=== PATIENT | female | born 1965 | race Caucasian/White ===

== ENCOUNTER 2021-12-07 03:55 | Emergency (ER) | payer OTHER, SELFPAY ==
[2021-12-07 04:10] VITALS: BP 126/91; PULSE 86; RESP 20; TEMP 36.4; O2SAT 99; BMI 24.0
[2021-12-07 04:30] VITALS: BP 118/66; PULSE 81; RESP 16; O2SAT 99
--- NOTE | 2021-12-07 04:41 | CRLHL7_ITS ---
For Patients: As a result of the Century Cures Act, medical imaging exams and procedure reports are released immediately into your electronic medical record. You may view this report before your referring provider. If you have questions, please contact your health care provider. HISTORY: Chest pain. COMPARISON: None available FINDINGS: A portable erect AP view of the chest was obtained at 0509 hours. The lungs are clear. No focal or diffuse infiltrates are present. There is no sign of pneumothorax or abnormality of the ribs to correlate with the history of chest pain. The heart is normal in size. The mediastinum is normal in appearance. There is mild scoliosis of the thoracic and lumbar spine convex towards the left. IMPRESSION: No active disease seen in the chest. Dictated by Leroy Crespo MD @ 12/07/2021 5:04:34 AM (Electronically Signed)
--- NOTE | 2021-12-07 04:42 | ED.CHESTPAIN ---
HPI - Chest Pain General Time Seen by Provider: 04:25 Date Seen: 12/07/21 Chief Complaint: Chest Pain Stated Complaint: Feeling heart fullness LT arm tingling Time Seen by Provider: 12/07/21 04:19 Source: patient, RN notes reviewed and old records reviewed Mode of arrival: ambulatory Limitations: no limitations History of Present Illness HPI narrative: Donita is a very pleasant 56-year-old female otherwise healthy who does not take any medications who comes to the emergency room for evaluation of left arm and chest pain. Donita was on her way to work at [employer] in [place] but decided to get her heart checked out as she has been experiencing some concerning symptoms. Patient states that her left arm has been tingling intermittently for the last 3 days. It does not appear to be associated with activity. She has been able to locate a spot on her left upper back that seems to be the trigger point. She describes tingling going into all 5 fingers. She states that when she thinks about this and having looked up on the Internet left arm pain she starts getting chest pain. She does not have any shortness of breath with this she denies nausea or lightheadedness. She notes that if she becomes involved in activity she does not seem to notice any discomfort. Donita has no history of heart problems noted there is a appear to be any early heart disease in her family. She is not a smoker. She does not know her cholesterol. Currently at this time she is feeling better. She does describe substernal chest discomfort that has been coming and going. She denies a history of DVT, recent extended car rides, calf tenderness or recent air travel. She has not had stress test in the past. Related Data Home Medications Medication Instructions Recorded Confirmed No Known Home Medications 12/07/21 12/07/21 Allergies Allergy/AdvReac Type Severity Reaction Status Date / Time No Known Drug Allergies Allergy Verified 12/07/21 04:23 Review of Systems Status of ROS Reports: 10 or more systems reviewed and unremarkable except as noted in History and below Narrative Patient notes weight gain since being in menopause. Patient notes to be working 2 jobs currently, 1 at [employer] and 1 at [employer] Does agree that she has stress in her life and does agree that she may have some anxiety. Const Denies: fever, chills or fatigue Eyes Denies: change in vision ENMT Reports: neck pain; Denies: throat pain or difficulty swallowing Cardio Reports: chest pain; Denies: palpitations, swelling of feet/ankles, lightheadedness or shortness of breath with exertion Resp Denies: shortness of breath, cough or wheezing GI Denies: abdominal pain, nausea, vomiting or difficulty swallowing Denies: painful urination Musculo Reports: neck pain; Denies: back pain Integ/Breast Denies: rash Neuro Reports: numbness in extremities; Denies: headache or dizziness Endo Denies: fatigue Allergy/Immuno Denies: wheezing PFSH PFSH Medical History Adjustment disorder with mixed anxiety and depressed mood Vitamin D deficiency, unspecified Social History Smoking Status: Never smoker Do you use any of these nicotine containing products: None Second hand tobacco smoke exposure: No How often do you have a drink containing alcohol: never How often do you have six or more drinks on one occasion: Never AUDIT-C Alcohol total score: 0 Non-prescribed substance use: denies use service: No Exam Const Vital Signs, click to edit/add: Vital Signs - 24 hr 12/07/21 04:10 12/07/21 05:30 12/07/21 05:00 Temperature 97.6 F Pulse Rate [Right Pulse Oximeter] 86 74 83 Respiratory Rate 20 16 16 Blood Pressure [Left Upper Arm] 126/91 H 108/66 108/74 Pulse Oximetry 99 100 100 Oxygen Delivery Method Room Air Room Air Room Air 12/07/21 04:30 Temperature Pulse Rate [Right Pulse Oximeter] 81 Respiratory Rate 16 Blood Pressure [Left Upper Arm] 118/66 Pulse Oximetry 99 Oxygen Delivery Method Room Air Documenting provider has reviewed patient's vital signs: yes Common normals: no apparent distress, average body habitus, oriented x3 and no limitations General appearance: cooperative, comfortable and well kempt [facility] Common normals: normocephalic and external ears normal Head and scalp: normocephalic Face and sinus: normal facial exam External ear: external ears normal Eye General eye: normal appearance of both eyes Neck & C-Spine Common normals: full ROM, no lymphadenopathy and supple General: tenderness (Point tenderness noted in the left trapezius.) Cervical spine: cervical ROM normal Other: Trigger point identified in left trapezius equal distant between upper thoracic spine and medial scapular edge. This causes numbness into the hand when I press on it. Resp Common normals: normal respiratory effort and clear to auscultation bilaterally Effort & inspection: able to speak in complete sentences Auscultation: clear to auscultation bilaterally Cardio Common normals: regular rate and regular rhythm Rate: regular rate Rhythm: regular rhythm GI Common normals: Normal to inspection, nondistended, normoactive bowel sounds present, soft to palpation and non-tender Palpation: soft Back & Pelvis Common normals: no thoracic nor lumbar tenderness Extremity Common normals: normal to inspection Neuro Common normals: oriented x3 Other: Moving all extremities. Patient has fullness of the lower extremities but she states this is normal body habitus for her. Ankles appear normal. Psych Common normals: thought process normal and speech normal Appearance: well kempt Activity/motor behavior: appropriate eye contact Speech: normal speech Mood and affect: anxious (Mildly) Thought process: normal thought process Thought content: normal thought content Attention/concentration: attention grossly intact Memory/cognition: memory grossly intact Insight: insight good Judgement: judgment good Skin Common normals: no rashes or lesions noted General skin exam: no rashes or lesions noted Course Course Hospital Course: Patient was examined vital signs reviewed as well as past medical history. Life-threatening differential diagnosis includes but is not limited to DE, PE, pneumothorax, pneumonia and aortic dissection other considerations include pericarditis myocarditis GERD anxiety. At this time patient presents with 3 days of intermittent left arm tingling with associated substernal chest discomfort for 2 days. This improves with distraction per patient admission. I do look back in patient had similar presentation in 2020. She has not had a stress test. She does not smoke. Patient will undergo 90 minute cardiac rule out with EKG, troponin, CBC, comprehensive panel, D-dimer. Will have her on the monitoring tech as well as oximetry. Reevaluation(s) Reevaluation #1: Patient is feeling better and has had no recurrent chest pain at this time. Laboratory values are discussed they are reassuring. This includes negative troponins, D-dimer as well as normal electrolyte panel. I did discuss the elevated blood sugar of 125 with patient and recommend follow-up with her primary MD in regards to continued monitoring. Her TSH is within normal limits. Vital Signs Vital signs: Initial Vital Signs Temperature 97.6 F 12/07/21 04:10 Temperature Source Temporal Artery Scan 12/07/21 04:10 Pulse Rate 86 12/07/21 04:10 Respiratory Rate 20 12/07/21 04:10 Blood Pressure 126/91 H 12/07/21 04:10 Blood Pressure Mean 102 12/07/21 04:10 Blood Pressure Position Semi-Fowlers 12/07/21 04:10 Pulse Oximetry 99 12/07/21 04:10 Oxygen Delivery Method 12/07/21 04:10 Vital Signs Temperature 97.6 F 12/07/21 04:10 Pulse Rate 86 12/07/21 04:10 Respiratory Rate 20 12/07/21 04:10 Blood Pressure 126/91 H 12/07/21 04:10 Pulse Oximetry 99 12/07/21 04:10 Oxygen Delivery Method 12/07/21 04:10 Temperature 97.6 F 12/07/21 04:10 Pulse Rate 74 12/07/21 05:30 Respiratory Rate 16 12/07/21 05:30 Blood Pressure 108/66 12/07/21 05:30 Pulse Oximetry 100 12/07/21 05:30 Oxygen Delivery Method 12/07/21 05:30 MDM - Chest Pain MDM Narrative Medical decision making narrative: 1. Atypical chest pain -patient has reassuring EKGs and 2 sets of negative cardiac enzymes. Further she has a negative D-dimer and has been stable in the emergency room.. Suspect that anxiety is playing a component of patient's symptoms here today. Recommend follow-up with primary MD for consideration stress test. Seek medical attention for recurrent or worsening symptoms. 2. Musculoskeletal left arm pain-recommend ibuprofen as needed. Also stretching and possible physical therapy may help relieve this discomfort. Massage may also help to loosen up this area. 3. Mild hyperglycemia-suggest follow-up with primary MD for fasting panel. 4. Disposition-home. Return or seek medical attention for recurrent symptoms. Medical Records Data Attestation: I reviewed the patient's medical records. Lab Data Attestation: I reviewed the patient's lab results. Labs: Lab Results 12/07/21 12/07/21 12/07/21 Range/Units 04:40 04:40 04:40 WBC 6.18 (4.50-11.00) K/uL RBC 4.51 (4.00-5.20) m/uL Hgb 12.4 (12.0-16.0) gm/dL Hct 38.9 (33.0-51.0) % MCV 86 (80-100) fL MCH 28 (26-34) pg MCHC 32 (32-36) gm/dL RDW Coeff of Lona 12.6 (11.5-15.5) % Plt Count 216 (140-440) K/uL Neut % (Auto) 55.0 (42.0-72.0) % Lymph % (Auto) 32.8 (20-44) % Montague % (Auto) 7.1 (0.0-11.0) % Eos % (Auto) 4.4 (0.0-7.0) % Baso % (Auto) 0.5 (0.0-3.0) % Neut # (Auto) 3.40 (1.7-7.0) K/uL Lymph # (Auto) 2.03 (0.90-2.90) K/uL Montague # (Auto) 0.40 (0.00-0.90) K/UL Eos # (Auto) 0.27 (0.00-0.50) K/uL Baso # (Auto) 0.03 (0.00-0.30) K/uL Abs Immat Gran (auto) 0.01 (0.00-0.30) K/uL D-Dimer Quant (PE/DVT) 0.38 (0.00-0.50) ug/ml Sodium 140 (135-149) mmol/L Potassium 3.6 (3.6-5.1) mmol/L Chloride 105 (96-114) mmol/L Carbon Dioxide 30 (20-32) mmol/L BUN 22 (7-30) mg/dL Creatinine 0.7 (0.5-1.5) mg/dL Estimated Creat Clear 76.57 Estimated GFR 101 ml/min Glucose 125 H (60-115) mg/dL Calcium 9.6 (8.4-10.6) mg/dL Total Bilirubin 0.3 (0.1-1.5) mg/dL AST 21 (12-35) U/L ALT 14 (4-35) U/L Alkaline Phosphatase 78 (40-150) U/L Total Protein 6.7 (6.0-8.3) g/dL Albumin 3.8 (3.3-5.0) g/dL TSH (0.270-4.200) uIU/mL POC Troponin I (0.01-0.04) ng/ml 12/07/21 12/07/21 12/07/21 Range/Units 04:40 04:51 06:10 WBC (4.50-11.00) K/uL RBC (4.00-5.20) m/uL Hgb (12.0-16.0) gm/dL Hct (33.0-51.0) % MCV (80-100) fL MCH (26-34) pg MCHC (32-36) gm/dL RDW Coeff of Lona (11.5-15.5) % Plt Count (140-440) K/uL Neut % (Auto) (42.0-72.0) % Lymph % (Auto) (20-44) % Montague % (Auto) (0.0-11.0) % Eos % (Auto) (0.0-7.0) % Baso % (Auto) (0.0-3.0) % Neut # (Auto) (1.7-7.0) K/uL Lymph # (Auto) (0.90-2.90) K/uL Montague # (Auto) (0.00-0.90) K/UL Eos # (Auto) (0.00-0.50) K/uL Baso # (Auto) (0.00-0.30) K/uL Abs Immat Gran (auto) (0.00-0.30) K/uL D-Dimer Quant (PE/DVT) (0.00-0.50) ug/ml Sodium (135-149) mmol/L Potassium (3.6-5.1) mmol/L Chloride (96-114) mmol/L Carbon Dioxide (20-32) mmol/L BUN (7-30) mg/dL Creatinine (0.5-1.5) mg/dL Estimated Creat Clear Estimated GFR ml/min Glucose (60-115) mg/dL Calcium (8.4-10.6) mg/dL Total Bilirubin (0.1-1.5) mg/dL AST (12-35) U/L ALT (4-35) U/L Alkaline Phosphatase (40-150) U/L Total Protein (6.0-8.3) g/dL Albumin (3.3-5.0) g/dL TSH 3.140 (0.270-4.200) uIU/mL POC Troponin I 0.00 L 0.00 L (0.01-0.04) ng/ml Imaging Data Chest x-ray: Attestation: I have reviewed the pertinent imaging results. My impression: No acute infiltrates. No widened mediastinum Radiologist's impression: No acute findings ECG Data Attestation: I personally reviewed and interpreted this ECG as follows: ECG interpretation date: 12/07/21 Prior ECG tracings: available for review Interpretation: Today's EKG 1. Shows normal sinus rhythm at a rate of 79. Incomplete right bundle. No acute ST or T-wave changes. Compared with EKG from 2019 no significant changes. EKG 2. Normal sinus rhythm at a rate of 70. No acute ST or T-wave changes. Unchanged from initial EKG. Discharge Plan Discharge Clinical Impression: Atypical chest pain, Musculoskeletal arm pain Patient Disposition: Home, Self-Care Condition: Improved Additional Instructions: Suggest the use of ibuprofen or Tylenol as needed for left arm discomfort. Suggest stretching and or massage for this area. You may need physical therapy instruction. Return to the emergency room for worsening symptoms and as needed. Follow-up with your primary MD for possible consideration of stress test. Prescriptions: No Action No Known Home Medications Stand Alone Forms: [facility] Info Instructions
[2021-12-07 04:45] LABS: Basophils Absolute Auto 0.03 K/uL (0.00-0.30); Basophils Percent Auto 0.5 % (0.0-3.0); Eosinophils Absolute Auto 0.27 K/uL (0.00-0.50); Eosinophils Percent Auto 4.4 % (0.0-7.0); Hematocrit 38.9 % (33.0-51.0); Hemoglobin* 12.4 gm/dL (12.0-16.0); Immature Granulocytes Abs Auto 0.01 K/uL (0.00-0.30); Lymphocytes Absolute Auto 2.03 K/uL (0.90-2.90); Lymphocytes Percent Auto 32.8 % (20-44); Mean Corpuscular HGB Conc 32 gm/dL (32-36); Mean Corpuscular Hemoglobin 28 pg (26-34); Mean Corpuscular Volume 86 fL (80-100); Monocytes Percent Auto 7.1 % (0.0-11.0); Platelet Count* 216 K/uL (140-440); RDW Coefficient of Variation % 12.6 % (11.5-15.5); Red Blood Count 4.51 m/uL (4.00-5.20); White Blood Count* 6.18 K/uL (4.50-11.00)
[2021-12-07 04:53] LABS: Slide Review Reflex No
[2021-12-07 05:00] VITALS: BP 108/74; PULSE 83; RESP 16; O2SAT 100
[2021-12-07 05:00] LABS: Chloride* 105 mmol/L (96-114)
[2021-12-07 05:01] LABS: Albumin* 3.8 g/dL (3.3-5.0); Potassium* 3.6 mmol/L (3.6-5.1); Sodium* 140 mmol/L (135-149)
[2021-12-07 05:02] LABS: D Dimer Quantitative* 0.38 ug/ml (0.00-0.50)
[2021-12-07 05:04] LABS: Alanine Aminotransferase* 14 U/L (4-35); Alkaline Phosphatase* 78 U/L (40-150); Aspartate Amino Transferase* 21 U/L (12-35); Bilirubin Total* 0.3 mg/dL (0.1-1.5); Blood Urea Nitrogen* 22 mg/dL (7-30); Carbon Dioxide* 30 mmol/L (20-32); Creatinine* 0.7 mg/dL (0.5-1.5); Est. Creatinine Clearance* 76.57; Estimated Glomerular Filt Rate 101 ml/min; Glucose* 125 mg/dL (60-115); Total Protein* 6.7 g/dL (6.0-8.3)
[2021-12-07 05:05] LABS: Calcium* 9.6 mg/dL (8.4-10.6)
[2021-12-07 05:30] VITALS: BP 108/66; PULSE 74; RESP 16; O2SAT 100
[2021-12-07] MEDS: IBUPROFEN 200 MG TABLET 600 MG PO (05:52)
== END 2021-12-07 06:45 | disposition home or self-care (01) ==
PROVIDERS: Emergency Provider Family Medicine
DX: M25.561 Pain in right knee (principal)
CPT/HCPCS: 36415; 71045; 80053; 84443; 84484; 85025; 85379; 93005; 99284; A9270

== ENCOUNTER 2022-01-13 09:44 | Emergency (ER) | payer OTHER, SELFPAY ==
[2022-01-13 09:47] VITALS: BP 119/79; PULSE 90; RESP 16; TEMP 36.8; O2SAT 100; BMI 24.0
--- NOTE | 2022-01-13 10:04 | CRLHL7_ITS ---
For Patients: As a result of the Cures Act, medical imaging exams and procedure reports are released immediately into your electronic medical record. You may view this report before your referring provider. If you have questions, please contact your health care provider. Indication: Injury and pain. Technique: Right knee 3 views Comparison: None Findings: Bones: Alignment is normal. No fractures or bone lesions. Joint spaces: No joint effusion. Joint spaces are well maintained. Minimal patellofemoral spurring. Soft tissues: Unremarkable. Impression: No sign of acute injury. Dictated by Gabe Rm MD @ 01/13/2022 10:58:02 AM (Electronically Signed)
--- NOTE | 2022-01-13 10:05 | CRLHL7_ITS ---
For Patients: As a result of the Century Cures Act, medical imaging exams and procedure reports are released immediately into your electronic medical record. You may view this report before your referring provider. If you have questions, please contact your health care provider. CLINICAL HISTORY: Pain erythema TECHNIQUE: A compression venous ultrasound exam was performed of the right lower extremity using mejia-scale imaging, color Doppler and spectral Doppler analysis. FINDINGS: Sonographic imaging of the right lower extremity demonstrates normal compressibility and color Doppler venous blood flow within the common femoral vein, deep femoral vein, and the proximal greater saphenous vein. Within the thigh, the femoral vein is patent and compressible. At a lower level, the popliteal and posterior tibial veins also show normal compressibility and color Doppler venous blood flow. Limited imaging of the contralateral groin demonstrates a normal spectral waveform and color Doppler venous blood flow within the left common femoral vein. IMPRESSION: No evidence of deep vein thrombosis within the right lower extremity. Dictated by Samantha Wilson MD @ 01/13/2022 11:32:37 AM (Electronically Signed)
--- NOTE | 2022-01-13 10:06 | ED_ITS ---
HPI - Extremity Injury (Lower) General Chief Complaint: Extremity Pain/Injury, Lower Stated Complaint: Injured RT leg Time Seen by Provider: 01/13/22 09:51 History of Present Illness HPI Narrative: This 56-year-old female comes in reporting pain in her right knee. She states that this pain is been present for the past couple weeks and at times feels that her knee is unstable. She states that she had an injury when shoveling snow a couple years ago where she felt like her knee twisted wrong. She did not have any swelling or effusion at that time. She states that her right knee feels unstable since then so she needs to take care when using it. She does not have any recent strenuous activity or injury event that brings about her current symptoms. She did apply ice last night and today there is warmth and erythema with some bruising in the posterior medial aspect of her right knee. She does not have a history of blood clots. Related Data Previous Rx's Medication Instructions Recorded ketorolac 10 mg tablet 10 mg PO Q8H 5 days #15 tabs 01/13/22 Allergies Allergy/AdvReac Type Severity Reaction Status Date / Time No Known Drug Allergies Allergy Verified 12/07/21 04:23 Review of Systems Status of ROS: Reports: 10 or more systems reviewed and unremarkable except as noted in History and below Narrative: Constitutional: No fevers, no weight gain or loss. Eyes: No discharge. No vision changes. HENT: No congestion, no sore throat, no ear pain. Cardiovascular: No chest pain, no palpitations. Respiratory: No shortness of breath, no wheezes, no cough. Gastrointestinal: No abdominal pain, no vomiting, no diarrhea. Genitourinary: No dysuria, no hematuria. Musculoskeletal: Normal range of motion. Right knee symptoms as described above. Skin: No rashes, no pruritis. Neurological: No dizziness, weakness, sensory change, speech change. Endo/Heme/Allergies: No bruising or bleeding. No polydipsia. Pysch: no suicidality, no anxiety, no insomnia. All other systems reviewed and are negative. [facility] Medical History Adjustment disorder with mixed anxiety and depressed mood Vitamin D deficiency, unspecified Social History Smoking Status: Never smoker Do you use any of these nicotine containing products: None Second hand tobacco smoke exposure: No How often do you have a drink containing alcohol: never How often do you have six or more drinks on one occasion: Never AUDIT-C Alcohol total score: 0 Non-prescribed substance use: denies use service: No Exam Narrative: Exam Narrative: Constitutional: Well-developed, well-nourished, no acute distress. HEENT: Normocephalic, atraumatic. Neck: Normal range of motion. Nontender. Supple. Heart: Intact distal pulses. Lungs: No chest discomfort. No wheezes, rhonchi, or rales. Abdomen: Nontender. Back: Normal range of motion. Extremities: Normal range of motion. The right knee has normal ligament exam and shows no sign of effusion. There is erythema in 2 locations on the medial posterior aspect of her knee with some bruising in the superior area of a erythema. There is warmth along with the erythema. She does not have obvious unilateral leg swelling or pain when palpating the calf or thigh musculature. Skin: Intact. No rash. Warm. No erythema or pallor. Neurologic: No altered sensation. No weakness. Alert and oriented. Psychiatric: No suicidality. No anxiety or depression. No insomnia. Nursing notes and vitals signs are reviewed. Const: Vital Signs, click to edit/add: Vital Signs - 24 hr 01/13/22 09:47 Temperature 98.2 F Pulse Rate [Pulse Oximeter] 90 Respiratory Rate 16 Blood Pressure [Ri ght Upper Arm] 119/79 Pulse Oximetry 100 Oxygen Delivery Me thod Room Air Course Vital Signs Vital signs: Initial Vital Signs Temperature 98.2 F 01/13/22 09:47 Temperature Source Temporal Artery Scan 01/13/22 09:47 Pulse Rate 90 01/13/22 09:47 Respiratory Rate 16 01/13/22 09:47 Blood Pressure 119/79 01/13/22 09:47 Blood Pressure Mean 92 01/13/22 09:47 Blood Pressure Position Supine 01/13/22 09:47 Pulse Oximetry 100 01/13/22 09:47 Oxygen Delivery Method 01/13/22 09:47 Vital Signs Temperature 98.2 F 01/13/22 09:47 Pulse Rate 90 01/13/22 09:47 Respiratory Rate 16 01/13/22 09:47 Blood Pressure 119/79 01/13/22 09:47 Pulse Oximetry 100 01/13/22 09:47 Oxygen Delivery Method 01/13/22 09:47 Temperature 98.2 F 01/13/22 09:47 Pulse Rate 90 01/13/22 09:47 Respiratory Rate 16 01/13/22 09:47 Blood Pressure 119/79 01/13/22 09:47 Pulse Oximetry 100 01/13/22 09:47 Oxygen Delivery Method 01/13/22 09:47 MDM - Extremity Injury (Lower) MDM Narrative Medical decision making narrative: This patient reports knee pain as described above. An ultrasound was done because of some erythema in bruising on the medial aspect. Ultrasound results are negative for deep venous thrombus. More likely this superficial finding is related to the ice that she applied last night. Her ligament exam shows no sign of obvious instability. She did have some pain when flexing and rotating her ankle possibly indicating a meniscus problem. X-ray of the right knee is also negative. She was arranged an appointment for follow-up in orthopedic clinic. I did prescribe Toradol for pain relief. The patient states that she is working 2 jobs and sleeps sporadically. She states that it gets worse toward the end of her shift. Her x-ray did not show obvious degenerative changes. Imaging Data XR R Knee: Radiologist's impression: No acute findings. US R Lower Extremity: My impression: No sign of thrombus. Discharge Plan Discharge Additional Instructions: Follow-up with orthopedic clinic appointment as scheduled. Take medication as needed and indicated. Return if worsening. Prescriptions: New ketorolac 10 mg tablet 10 mg PO Q8H 5 Days Qty: 15 0RF Follow Up/Referrals: Provider,Not a Local [Primary Care Provider] - Stand Alone Forms: [facility] Info Instructions
== END 2022-01-13 11:29 | disposition home or self-care (01) ==
PROVIDERS: Emergency Provider Emergency Medicine Emergency Medical Services
DX: M25.561 Pain in right knee (principal)
CPT/HCPCS: 73562; 93971; 99283; 99284

== ENCOUNTER 2022-01-24 13:45 | Outpatient (CLI) | payer OTHER, SELFPAY ==
--- NOTE | 2022-01-24 13:45 | MR_ITS ---
[address] [address] Phone:?[phone] Fax:?[phone] Referring Physician Information: Sujit Gonzales M.D. [address] [facility] [address] Phone:?[phone] Fax:?[phone] Patient:Birdie Goode D.O.B:?1965 Sex:?Female Phone:?[phone] [facility] MRN:?[id number] Exam Date:?01/24/2022 ? EXAM: MRI of the RIGHT KNEE, without contrast CLINICAL: Right knee sprain. Evaluate for meniscal tear. COMPARISONS: None available. TECHNICAL: MR sequences of the right knee: sagittals: PD, PDFS coronals: PD, T2FS axials: PD, PDFS SEDATION: None. CONTRAST: None. FINDINGS: Ligaments: ACL: Intact ACL anteromedial and posterolateral bundles, without sprain or tear. PCL: Intact PCL, without acute or chronic injury. MCL: Intact MCL superficial and deep layers, with soft tissue edema about the MCL which is likely reactive to the underlying medial meniscal pathology. LCL: Intact LCL, without injury. Posterolateral corner: Popliteus, biceps femoris, iliotibial band, and the popliteofibular ligament appear intact. Posteromedial corner: Semimembranosus, pes anserine tendons and posterior oblique ligament appear intact. Extensor mechanism: Patellar tendon: Intact, without tendinopathy. Quadriceps tendon: Intact, without tendinopathy. Retinacula: Medial and lateral retinacula are intact. Fat pads: Unremarkable infrapatellar Hoffa's, quadriceps and prefemoral fat pads. Patellofemoral joint: Patella: Grade 2 chondral loss involves the patellar median ridge. Trochlea: No significant chondromalacia. Medial compartment: Medial meniscus: Obliquely oriented tearing is seen to involve the posterior horn extending into the posterior root fibers on sagittal series 6 images 18-23 and seen to extend into the body segment on coronal series 8 images 18-19. Approximately 3 mm of medial extrusion of the peripheral body segment as seen on coronal series 8 image 17. Medial cartilage: Focal deep chondral fissure involving the weightbearing medial femoral condyle on coronal series 8 image 17. Medial compartment cartilage otherwise appears maintained. Lateral compartment: Lateral meniscus: No evidence of discrete meniscal tear or meniscal displacement. Lateral cartilage: No significant chondromalacia. Knee joint: Effusion: Small right knee effusion. Intra-articular bodies:?No convincing bodies identified. Popliteal cyst: Small. Bones: There is mild reactive marrow edema involving the peripheral medial tibial plateau adjacent to the medial meniscal tear. No osseous fracture site is identified. There is scattered edema within the subcutaneous soft tissues. IMPRESSION: 1. Tearing of the meniscus as above, with approximately 3 mm of medial extrusion of the peripheral body segment medial meniscus into the medial gutter. 2. Focal deep chondral fissure involving the weightbearing medial femoral condyle with grade 2 chondral loss involving the patellar median ridge. 3. Small joint effusion and small popliteal cyst. JCZ Electronically signed on 01/25/2022 7:50:00 AM by Reynaldo Bradley D.O.
== END 2022-01-24 13:46 | disposition home or self-care (01) ==
PROVIDERS: Visit Provider Orthopaedic Surgery Sports Medicine
DX: M25.561 Pain in right knee (principal); M25.461 Effusion, right knee; M71.21 Synovial cyst of popliteal space [Baker], right knee; S83.221A Peripheral tear of medial meniscus, current injury, right knee, initial encounter
CPT/HCPCS: 73721

== ENCOUNTER 2023-11-24 03:59 | Emergency (ER) | payer OTHER, SELFPAY ==
[2023-11-24] VITALS (12 sets, daily range): BP systolic 132–159; BP diastolic 74–89; PULSE 75–105; RESP 16–20; TEMP 36.7; O2SAT 96–100
--- NOTE | 2023-11-24 04:00 | ED_ITS ---
HPI - Chest Pain General Time Seen by Provider: 04:00 Date Seen: 11/24/23 Chief Complaint: Chest Pain Stated Complaint: chest pains Time Seen by Provider: 11/24/23 04:00 Source: patient, RN notes reviewed and old records reviewed Mode of arrival: ambulatory Limitations: no limitations History of Present Illness HPI narrative: 58-year-old female who comes in today with chest pain. Patient notes some pain in the left chest is starting about 30 minutes prior to coming to the emergency department. She says is not like indigestion. Denies nausea, vomiting, shortne ss of breath, pain not better worse with breathing. Patient has no. 0. She denies a history of heart problems although says she is concerned about this. No prior surgeries. Related Data Home Medications ?Medication ?Instructions ?Recorded ?Confirmed No Known Home Medications 11/24/23 11/24/23 Allergies Allergy/AdvReac Type Severity Reaction Status Date / Time No Known Drug Allergies Allergy Verified 11/24/23 04:06 [facility] Medical History H/O benign breast biopsy ?Z98.890 - Other specified postprocedural states (ICD-10) Vitamin D deficiency, unspecified ?E55.9 - Vitamin D deficiency, unspecified (ICD-10) Adjustment disorder with mixed anxiety and depressed mood ?F43.23 - Adjustment disorder with mixed anxiety and depressed mood (ICD-10) Family History (Updated 01/15/22 @ 14:23 by Katelyn Dominguez ~ [facility], [facility]) Mother Osteoarthritis Stroke Father Diabetes Social History (Reviewed 02/19/22 @ 13:22 by Katelyn Dominguez ~ [facility], [facility]) Smoking Status: Never smoker Do you use any of these nicotine containing products: None Second hand tobacco smoke exposure: No How often do you have a drink containing alcohol: never How often do you have six or more drinks on one occasion: Never AUDIT-C Alcohol total score: 0 Non-prescribed substance use: denies use service: No Exam Narrative Exam Narrative: General: Well-developed and well-nourished, no acute distress Head: Atraumatic and normocephalic Eyes: Pupils are equal reactive, extraocular motions intact, conjunctiva clear ENT: External nose and ears are normal, posterior pharynx without erythema or exudate Neck: No midline cervical tenderness, full spontaneous range of motion the neck, trachea midline, no adenopathy Heart: Regular rate and rhythm no murmurs or thrills Lungs: Clear to auscultation bilaterally without wheezes or crackles Abdomen: Soft, nontender, nondistended with active bowel sounds Musculoskeletal: No tenderness, deformity, or edema Neurologic: Awake, alert, and oriented x3, no gross focal neurologic deficits, cranial nerves intact as tested Psych: Mood and affect are appropriate Skin: No rashes Const Vital Signs, click to edit/add: Vital Signs - 24 hr 11/24/23 04:04 11/24/23 04:22 11/24/23 04:30 Temperature 98.0 F Pulse Rate 93 100 Pulse Rate [Right Pulse Oximeter] 105 H Respiratory Rate 20 Blood Pressure [Right Upper Arm] 159/89 H Pulse Oximetry 98 99 100 Oxygen Delivery Method Room Air 11/24/23 04:45 11/24/23 05:00 11/24/23 05:15 Temperature Pulse Rate 84 86 82 Pulse Rate [Right Pulse Oximeter] Respiratory Rate Blood Pressure [Right Upper Arm] Pulse Oximetry 99 99 99 Oxygen Delivery Method 11/24/23 05:30 11/24/23 05:45 11/24/23 06:00 Temperature Pulse Rate 77 75 78 Pulse Rate [Right Pulse Oximeter] Respiratory Rate 16 Blood Pressure [Right Upper Arm] Pulse Oximetry 99 99 96 Oxygen Delivery Method Course Course ED Course: Patient seen examined. Reviewed prior medical record from November 2019 and December 2021 when patient was also seen for chest pain, will to be noncardiac in origin with negative emergency department valuation. Patient presents today with chest pain that she describes as indigestion with no associated symptoms, patient is pain-free now. Labs are ordered, EKG is reassuring EKG independently interpreted by me performed at 4:09 a.m. demonstrates sinus rhythm rate 99, no acute ST elevations or depressions, nonspecific ST changes, normal axis, normal intervals, MN 150, QTC 472. Compared to prior EKG December 2021, no acute changes Reevaluation(s) Time of Reevaluation #1: 04:50 Reevaluation #1: Labs ordered and independently interpreted by me with negative D-dimer, negative troponin, mild hypokalemia but otherwise reassuring basic panel. Patient updated and discussed repeat troponin at 2:00 a.m.. If this is negative, patient can be discharged with outpatient follow-up Time of Reevaluation #2: 06:29 Reevaluation #2: Repeat troponin is negative, patient remains pain-free in the emergency department. Stable for discharge with outpatient follow-up. Vital Signs Vital signs: Initial Vital Signs Respiratory Effort Normal, Spontaneous, Non-Labored 11/24/23 04:00 Respiratory Depth Normal 11/24/23 04:00 Respiratory Pattern Normal 11/24/23 04:00 Vital Signs Temperature 98.0 F 11/24/23 04:04 Pulse Rate 105 H 11/24/23 04:04 Respiratory Rate 20 11/24/23 04:04 Blood Pressure 159/89 H 11/24/23 04:04 Pulse Oximetry 98 11/24/23 04:04 Oxygen Delivery Method Room Air 11/24/23 04:04 Temperature 98.0 F 11/24/23 04:04 Pulse Rate 78 11/24/23 06:00 Respiratory Rate 16 11/24/23 06:00 Blood Pressure 159/89 H 11/24/23 04:04 Pulse Oximetry 96 11/24/23 06:00 Oxygen Delivery Method Room Air 11/24/23 04:04 Medications Administered Medications: Discontinued Medications Generic Name Dose Route Start Last Admin Trade Name Freq PRN Reason Stop Dose Admin Aspirin 324 mg 11/24/23 04:14 11/24/23 04:21 Aspirin 81 Mg Tab.Chew PO 11/24/23 04:15 324 mg ONCE ONE Administration MDM - Chest Pain Lab Data Labs: Lab Results 11/24/23 11/24/23 Range/Units 04:15 06:15 WBC 6.06 (4.50-11.00) K/uL RBC 4.64 (4.00-5.20) m/uL Hgb 12.5 (12.0-16.0) gm/dL Hct 39.4 (33.0-51.0) % MCV 85 (80-100) fL MCH 27 (26-34) pg MCHC 32 (32-36) gm/dL RDW Coeff of Lona 12.6 (11.5-15.5) % Plt Count 213 (140-440) K/uL Neut % (Auto) 52.2 (42.0-72.0) % Lymph % (Auto) 35.0 (20-44) % [place] % (Auto) 8.3 (0.0-11.0) % Eos % (Auto) 3.8 (0.0-7.0) % Baso % (Auto) 0.7 (0.0-3.0) % Neut # (Auto) 3.17 (1.7-7.0) K/uL Lymph # (Auto) 2.12 (0.90-2.90) K/uL [place] # (Auto) 0.50 (0.00-0.90) K/UL Eos # (Auto) 0.23 (0.00-0.50) K/uL Baso # (Auto) 0.04 (0.00-0.30) K/uL Abs Immat Gran (auto) 0.00 (0.00-0.30) K/uL Imm/Tot Granulo (auto) 0.0 % D-Dimer Quant (PE/DVT) 0.18 (0.00-0.50) ug/ml Sodium 140 (135-149) mmol/L Potassium 3.2 L (3.6-5.1) mmol/L Chloride 107 (96-114) mmol/L Carbon Dioxide 23 (20-32) mmol/L Anion Gap 10 (7-15) mEq/L BUN 20 (7-30) mg/dL Creatinine 0.6 (0.5-1.5) mg/dL Estimated Creat Clear 87.18 Estimated GFR 103 ml/min Glucose 100 (60-115) mg/dL Calcium 9.5 (8.4-10.6) mg/dL NT-Pro-B Natriuret Pep 237 pg/mL POC Troponin I 0.00 L 0.00 L (0.01-0.04) ng/ml Discharge Plan Discharge Prescriptions: No Action No Known Home Medications Follow Up/Referrals: Provider,Not a Local [Primary Care Provider] -
--- NOTE | 2023-11-24 04:15 | CRLHL7_ITS ---
For Patients: As a result of the Century Cures Act, medical imaging exams and procedure reports are released immediately into your electronic medical record. You may view this report before your referring provider. If you have questions, please contact your health care provider. INDICATION: Chest pain. TECHNIQUE: Chest 1 views. COMPARISON: None. FINDINGS: Cardiovasculature and mediastinum: Heart size is normal. Unremarkable mediastinum. Lungs and pleural spaces: Lungs are clear. No sign of infiltrate or mass. No sign of pleural effusion. No pneumothorax. Bones and soft tissues: No significant findings. IMPRESSION: No acute or significant findings. Dictated by Collins Argueta MD @ 11/24/2023 4:37:02 AM (Electronically Signed)
--- OUTSIDE RECORDS SUMMARY | 2023-11-24 04:20 | XMS_ITS | Clinical Summary ---
Author Organization [facility] Address [place], [place] [address] Care Team Providers Care Automotive General Manager Name Role Phone Pcp, No Primary Care Provider Unavailabl e Allergies No known active allergies Medications No known medications Active Problems Problem Noted Date Diagnosed Date Tear of medial meniscus of right knee 04/15/2022 Chondromalacia of knee, right 04/15/2022 Adjustment disorder with mixed anxiety and depre ssed mood 11/09/2014 Vitamin D deficiency 09/10/2010 Immunizations Name Administration Dates Next Due Td (Age >=7 Years) 09/02/2002 Tdap 12/13/2013 Family History Medical History Relation Name Comments Diabetes Father Stroke Maternal Grandfather chronic ally poor health Other Paternal Grandfather abdomin al aortic aneurysm Other Paternal Grandmother Alzheim ers Cancer-breast No Family History Cancer-colon No Family History Cancer-ovarian No Family History Relation Name Status Comments Father Maternal Grandfather Paternal Grandfather Paternal Grandmother Social History Tobacco Use Types Packs/Day Years Used Date Smoking Tobacco: Every Day Cigarettes 0.3 3 Started: 2000; Last attempted to quit: 2003 Smokeless Tobacco: Never Tobacco Cessation:Counseling Given: Yes Comments:socially sometimes Alcohol Use Standard Drinks/Week Comments Yes 0 (1 standard drink = 0.6 oz pur e alcohol) once a week Social Connections Answer Date Recorded Frequency of Communication with Friends and Fami ly Not on file 06/26/2023 Financial Resource Strain Answer Date R ecorded Difficulty of Paying Living Expenses Not on file 05/05/2021 Difficulty of Paying Living Expenses Not on file 05/05/2021 Sex and Gender Information Value Date Recorded Sex Assigned at Not on file Gender Identity Not on file Sexual Orientation Not on file Obstetrics History Para Term AB IAB SAB Ectopic Multiple Livin g Live Births 0 0 0 0 0 0 0 0 0 0 Last Filed Vital Signs Vital Sign Reading Time Taken Comments Blood Pressure 122/70 06/26/2023 2:37 PM PHARMACY SERVICES DIRECTOR Pulse 80 06/26/2023 2:37 PM PHARMACY SERVICES DIRECTOR Temperature 37.2 ??C (98.9 ??F) 07/01/2016 3:58 PM CS T Respiratory Rate 16 12/13/2013 2:25 PM CDT Oxygen Saturation 99% 07/01/2016 3:58 PM PHARMACY SERVICES DIRECTOR Inhaled Oxygen Concentration - - Weight 77.1 kg (170 lb) 06/26/2023 2:37 PM PHARMACY SERVICES DIRECTOR Height 162.6 cm (5' 4) 04/15/2022 1:56 PM PHARMACY SERVICES DIRECTOR Body Mass Index 29.18 04/15/2022 1:56 PM PHARMACY SERVICES DIRECTOR Plan of Treatment Health Maintenance Due Date Last Done Comments Pneumococcal series for age 6-64 (1 of 2 - PCV) 1970 HIV for age 15-65 10/08/1979 Hepatitis C screening for ag e 18-79 1982 Colonoscopy through age 75 2009 Zoster (shingles) series for age 50+ (1 of 2) 2014 Depression screening for age 12+ 02/28/2017 02/29/20 16 Mammogram for age 45-75 03/20/2017 03/20/20 16, 03/15/2016, 12/21/2013, Additional history exists Pap test for age 21-65 03/28/2018 5, 12/13/2013, 12/13/2013, Additional history exists BMI (ht and wt on same day) for age 18+ 04/15/2023 04/15/2022, 07/01/2016, 06/13/2016, Additional history exists Tetanus booster 12/14/2023 12/13/2013, 09/02/2002 Influenza for age 50-64 01/04/2024 Lipids for age 45-75 06/26/2028 06/26/2023, 03/13/2016, 01/11/2008 Tdap Completed 12/13/2013 COVID-19 vaccine series Completed 02/05/20 23, 10/05/2021, 03/02/2021, Additional history exists Procedures Procedure Name Priority Date/Time Associated Diagnosis Comments LIPID PANEL W REFLEX MEASURED LDL Routine 06/26/2023 3:37 PM PHARMACY SERVICES DIRECTOR Weight gain XR FFDM MAMMO UNI ADDL VIEWS RIGHT (IA) Routine 03/20/2016 2:31 PM PHARMACY SERVICES DIRECTOR Abnormal mammogram WASTE/MATERIALS EXCHANGE SPECIALIST THIN PREP PAP SCREEN IMAGED Routine 03/28/2015 4:58 PM PHARMACY SERVICES DIRECTOR Screening for cervical cancer from Last 3 Months or Most Recently Relevant to Health Maintenance Results * LIPID PANEL W REFLEX MEASURED LDL (06/26/2023 3:37 PM PHARMACY SERVICES DIRECTOR) CHOLESTEROL,TOTAL 178 100 - 199 mg/dL 06/26/2023 4:43 PM PHARMACY SERVICES DIRECTOR [facility] Comment: Cholesterol, Total Reference Ranges Desirable <200 mg/dL Borderline 200-239 mg/dL High >=240 mg/dL TRIGLYCERIDES 44 <150 mg/dL 06/26/2023 4:43 PM PHARMACY SERVICES DIRECTOR [facility] HDL CHOLESTEROL 83 >40 mg/dL 4:43 PM PHARMACY SERVICES DIRECTOR [facility] NON-HDL CHOLESTEROL 95 <145 mg/dl 06/26/2023 4:43 PM [facility] CHOL/HDL RATIO 2.14 <4.50 06/26/2023 4:43 PM [facility] LDL CHOLESTEROL 86 <=130 mg/dL 06/26/2023 4:43 PM [facility] VLDL CHOLESTEROL 9 <=30 mg/dL 06/26/2023 4:43 PM [facility] PROVIDER ORDERED STATUS RANDOM 06/26/2023 4:43 PM PHARMACY SERVICES DIRECTOR [facility] Blood BLOOD SPECIMEN / Unknown Venipuncture / Unknown 06/26/2023 3:37 PM PHARMACY SERVICES DIRECTOR 06/26/2023 3:39 PM PHARMACY SERVICES DIRECTOR Tammy Hooks MD BOBCAT DRIVER/LABOR RY [facility] [address] [place] [id number] * XR FFDM MAMMO UNI ADDL VIEWS RIGHT (03/20/2016 2:31 PM PHARMACY SERVICES DIRECTOR) Anatomical Region Laterality Modality BREASTS, Breast Right Right Mammograph y Impressions 03/20/2016 6:42 PM PHARMACY SERVICES DIRECTOR ??Suspicious. RECOMMENDATION: ??Stereotactic biopsy. ?? NOTE: ??I discussed today's imaging findings with the patient. ??The stereotactic biopsy will be scheduled through the animal daycare provider prior to the patient leaving the clinic today. ?? BI-RADS Category 4: Suspicious Soto Neal D.O. Diagnostic Radiologist [employer], [employer]. [email or web address] ?? / Narrative 03/20/2016 6:42 PM PHARMACY SERVICES DIRECTOR ADDITIONAL VIEWS RIGHT BREAST 03/20/2016 CLINICAL HISTORY: ??Recalled for further evaluation of a cluster of microcalcifications in the upper outer quadrant noted on screening mammogram 03/15/2016. ?? TECHNIQUE: ??Magnification views in the CC, MLO and ML projections. ? BREAST COMPOSITION: ??Very dense. ?? FINDINGS: ??The examination demonstrates a 4 mm cluster of slightly pleomorphic microcalcifications at approximately the 10 o'clock position mid depth. ?? Florida Rodriguez NP MAMMO * WASTE/MATERIALS EXCHANGE SPECIALIST THIN PREP PAP SCREEN IMAGED (03/28/2015 4:58 PM PHARMACY SERVICES DIRECTOR) WASTE/MATERIALS EXCHANGE SPECIALIST CYTOLOGY See Anatomic Pathology case 04/02/2015 5:01 PM PHARMACY SERVICES DIRECTOR [facility] Specimen (specimen) Non-Blood / Unknown 03/28/2015 4:58 PM PHARMACY SERVICES DIRECTOR 03/28/2015 4:58 PM PHARMACY SERVICES DIRECTOR Florida Rodriguez NP PATHOLOGY /CYTOLOGY [facility] [address] [place] [address], [place] from Last 3 Months or Most Recently Relevant to Health Maintenance Care Teams Automotive General Manager Relationship Specialty Start Date End Date Pcp, No . PCP - General 04/10/18
[2023-11-24] MEDS: ASPIRIN 81 MG TAB.CHEW 324 MG PO (04:21)
[2023-11-24 04:25] LABS: Basophils Absolute Auto 0.04 K/uL (0.00-0.30); Basophils Percent Auto 0.7 % (0.0-3.0); Eosinophils Absolute Auto 0.23 K/uL (0.00-0.50); Eosinophils Percent Auto 3.8 % (0.0-7.0); Hematocrit 39.4 % (33.0-51.0); Hemoglobin* 12.5 gm/dL (12.0-16.0); Lymphocytes Absolute Auto 2.12 K/uL (0.90-2.90); Mean Corpuscular HGB Conc 32 gm/dL (32-36); Mean Corpuscular Hemoglobin 27 pg (26-34); Mean Corpuscular Volume 85 fL (80-100); Monocytes Percent Auto 8.3 % (0.0-11.0); Neutrophils Absolute Auto 3.17 K/uL (1.7-7.0); Neutrophils Percent Auto 52.2 % (42.0-72.0); Platelet Count* 213 K/uL (140-440); RDW Coefficient of Variation % 12.6 % (11.5-15.5); Red Blood Count 4.64 m/uL (4.00-5.20); White Blood Count* 6.06 K/uL (4.50-11.00)
[2023-11-24 04:26] LABS: Slide Review Reflex No
[2023-11-24 04:37] LABS: Chloride* 107 mmol/L (96-114); Potassium* 3.2 mmol/L (3.6-5.1); Sodium* 140 mmol/L (135-149)
[2023-11-24 04:40] LABS: Anion Gap 10 mEq/L (7-15); Blood Urea Nitrogen* 20 mg/dL (7-30); Calcium* 9.5 mg/dL (8.4-10.6); Carbon Dioxide* 23 mmol/L (20-32); Creatinine* 0.6 mg/dL (0.5-1.5); Est. Creatinine Clearance* 87.18; Estimated Glomerular Filt Rate 103 ml/min; Glucose* 100 mg/dL (60-115)
[2023-11-24 04:47] LABS: D Dimer Quantitative* 0.18 ug/ml (0.00-0.50)
[2023-11-24 04:50] LABS: NT Pro B Type NatriureticPept* 237 pg/mL
== END 2023-11-24 06:43 | disposition home or self-care (01) ==
PROVIDERS: Emergency Provider Family Medicine
DX: R07.9 Chest pain, unspecified (principal)
CPT/HCPCS: 36415; 71045; 80048; 83880; 84484; 85025; 85379; 93005; 94761; 99284; 99285; A9270